=== PATIENT | male | born 1930 | race Caucasian/White ===

== ENCOUNTER → 2017-06-21 07:32 | Outpatient (CLI) | payer MEDICARE, OTHER | END | disposition home or self-care (01) | LOC: D.RAD 07:32 | DX: R13.10 Dysphagia, unspecified (principal) ==

== ENCOUNTER → 2017-07-14 10:48 | Outpatient (CLI) | payer MEDICARE, OTHER | END | disposition home or self-care (01) | LOC: D.RAD 10:48 | DX: R13.10 Dysphagia, unspecified (principal) ==

== ENCOUNTER → 2017-09-20 09:34 | Outpatient (CLI) | payer MEDICARE, OTHER | END | disposition home or self-care (01) | LOC: D.MRI 09:34 | DX: M25.561 Pain in right knee (principal) ==

== ENCOUNTER 2018-08-29 11:41 | Inpatient (IN) | payer MEDICARE, OTHER ==
[2018-08-29] MEDS ORDERED: CIPRO500 MG PO (11:46)
[2018-08-29] MEDS ORDERED: BISOPROLOL-HCTZ1 TA5 PO (11:47)
[2018-08-29] MEDS ORDERED: BENICAR20 MG PO (11:47)
[2018-08-29] MEDS ORDERED: NEURONTIN 300300 MG PO (11:48)
[2018-08-29] MEDS ORDERED: SYNTHROID75 MCG PO (11:48)
[2018-08-29] MEDS ORDERED: PROPAFENONE HC300 MG PO (11:48)
[2018-08-29] MEDS ORDERED: ZYLOPRIM300 MG PO (11:49)
[2018-08-29] MEDS ORDERED: ZANTAC300 MG PO (11:49)
[2018-08-29] MEDS ORDERED: BAYER CHEWABLE81 MG PO (11:49)
[2018-08-29] MEDS ORDERED: CRESTOR5 MG PO (11:50)
[2018-08-29] MEDS ORDERED: MIRAPEX0.25 MG PO (11:50)
[2018-08-29] MEDS ORDERED: CYMBALTA60 MG PO (11:50)
[2018-08-29] MEDS ORDERED: CARAFATE1 G PO (11:51)
[2018-08-29] MEDS ORDERED: COLCRYS0.6 MG PO (11:51)
[2018-08-29] MEDS ORDERED: HYDROCODON-ACE1 EA10 PO (11:51)
[2018-08-29] MEDS ORDERED: STOOL SOFTENER100 M1 PO (11:52)
[2018-08-29 12:29] LABS: BASOPHILS 0.3 % (0-2); EOSINOPHILS 3.6 % (0-7); HEMATOCRIT 35.8 % (42.0-54.0); HEMOGLOBIN 12.6 g/dL (13.5-17.5); LYMPHOCYTES 21.6 % (15-50); MCH 31.7 pg (26.0-34.0); MCHC 35.2 g/dL (31.0-37.0); MCV 90.2 fL (80.0-100.0); MEAN PLATELET VOLUME 9.2 fL (7.4-10.4); MONOCYTES 10.2 % (2-11); NEUTROPHILS 63.3 % (40-80); PLATELET COUNT 127 10x3/uL (130-400); RBC 3.97 10x6/uL (4.20-6.10); RDW 13.1 % (11.5-14.5); WBC 11.2 10x3/uL (4.8-10.8)
[2018-08-29 12:44] LABS: ALKALINE PHOSPHATASE 77 U/L (46-116); ALT (SGPT) 25 U/L (10-68); BILIRUBIN - TOTAL 0.99 mg/dL (0.2-1.3); CALC OSMOLALITY 267 mosm/kg (275-300); CALCIUM 8.2 mg/dL (8.5-10.1); CARBON DIOXIDE 21.6 mmol/L (21.0-32.0); CHLORIDE - SERUM 95 mmol/L (98-107); CREATININE - SERUM 4.1 mg/dL (0.6-1.3); GLUCOSE 88 mg/dL (74-106); POTASSIUM - SERUM 4.8 mmol/L (3.5-5.1); PROTEIN - SERUM 5.7 g/dL (6.4-8.2); SODIUM 128 mmol/L (136-145); UREA NITROGEN 47 mg/dL (7-18); eGFR NON AFRICAN AMERICAN 15 mL/min (90-120)
[2018-08-29 12:48] LABS: AMYLASE - SERUM 41 U/L (25-115); LIPASE 209 U/L (73-393); TROPONIN-I < 0.017 ng/mL (0.000-0.060)
[2018-08-29 14:26] LABS: APPEARANCE CLEAR (CLEAR); BILIRUBIN NEGATIVE (NEGATIVE); COLOR YELLOW (YELLOW); GLUCOSE NEGATIVE (NEGATIVE); KETONE NEGATIVE (NEGATIVE); NITRITE NEGATIVE (NEGATIVE); PROTEIN 1+ mg/dL (NEGATIVE); UROBILINOGEN NORMAL (NORMAL)
[2018-08-29 14:27] LABS: BACTERIA FEW /hpf (NONE SEEN); EPITHELIAL CELLS 0-5 /hpf (0-5); RED CELLS - URINE 0-5 /hpf (0-5)
[2018-08-29 18:20] VITALS: BP 109/58; BMI 31.9
--- NOTE | 2018-08-29 19:52 | NUR ---
REST IN BED. CALL LIGHT IN REACH.
[2018-08-29 20:00] VITALS: BP 124/45
[2018-08-30] VITALS (7 sets, daily range): BP systolic 103–147; BP diastolic 48–77; BMI 31.8
--- NOTE | 2018-08-30 03:21 | NUR ---
REST QUIETLY IN BED. CALL LIGHT IN REACH.
[2018-08-30 06:02] LABS: BASOPHILS 0.4 % (0-2); EOSINOPHILS 4.4 % (0-7); HEMATOCRIT 35.4 % (42.0-54.0); HEMOGLOBIN 12.9 g/dL (13.5-17.5); IMMATURE GRANULOCYTES 1.3 % (0-5); LYMPHOCYTES 18.1 % (15-50); MCH 32.3 pg (26.0-34.0); MCHC 36.4 g/dL (31.0-37.0); MCV 88.7 fL (80.0-100.0); MEAN PLATELET VOLUME 9.2 fL (7.4-10.4); MONOCYTES 10.1 % (2-11); NEUTROPHILS 65.7 % (40-80); PLATELET COUNT 150 10x3/uL (130-400); RBC 3.99 10x6/uL (4.20-6.10); RDW 12.9 % (11.5-14.5); WBC 9.3 10x3/uL (4.8-10.8)
[2018-08-30 06:27] LABS: ANION GAP 17.8 mmol/L (8-16); BILIRUBIN - TOTAL 0.97 mg/dL (0.2-1.3); CALCIUM 8.6 mg/dL (8.5-10.1); CARBON DIOXIDE 20.7 mmol/L (21.0-32.0); CREATININE - SERUM 3.3 mg/dL (0.6-1.3); POTASSIUM - SERUM 4.5 mmol/L (3.5-5.1); PROTEIN - SERUM 5.9 g/dL (6.4-8.2)
--- NOTE | 2018-08-30 14:19 | NUR ---
THE PATIENT WAS LYING IN BED WHEN STAFF ENTERED HIS ROOM. BED IS IN THE LOW POSITION WITH SIDERAILS X2 AND CALL LIGHT IS WITHIN REACH. THE PATIENT WAS EDUCATED ON AND DEMONSTRATED TH EUSE OF A CALL LIGHT. THE PATIENT APPEARS COMFORTABLE WITH NO QUESTIOSN OR CONCERNS AT THIS TIME.
--- NOTE | 2018-08-30 14:35 | MORECARE ---
CASE MANAGEMENT DISCHARGE SUMMARY PATIENT: SCOTT KANG UNIT: [id number] ADM DATE: 08/29/18 AGE: 87 : 30 SEX: M ROOM/BED: D.1212 AUTHOR: SHERRIE MASCORRO PHYSICIAN: REFERRING PHYSICIAN: DAMI MCNEILL MD DATE OF SERVICE: 08/30/18 Discharge Plan Patient Name: SCOTT KANG [facility] [facility] 1930 Planned Disposition: Anticipated Discharge Date: Discharge Date: Expected LOS: Initial Reviewer: [email or web address] Initial Review Date: 08/30/2018 Generated: 08/30/18 3:35 pm DCPIA - Discharge Planning Initial Assessment Updated by [email or web address]: Patty Lilly on 08/30/18 2:35 pm * Is the patient Alert and Oriented? Yes * PCP LADI * Preadmission Environment Home with Family * ADLs Independent * Equipment Cane CPAP Walker * List name and contact numbers for known caregivers / representatives who currently or will assist patient after discharge: JING, ALESHIA, * Additional services required to return to the preadmission environment? No * Can the patient safely return to the preadmission environment? Yes * Has this patient been hospitalized within the prior 30 days at any hospital? No Patient Name: SCOTT KANG Page [id number] at 1435 All edits/amendments must be made on the electronic document DICTATION DATE: 08/30/18 1435 AUTOMOTIVE GENERAL MANAGER: ROJAS 08/30/18 1435 RPT#: [id number] DC DATE: STATUS: ADM IN [facility] [address] [place] [address] END OF REPORT
--- NOTE | 2018-08-30 14:45 | MORECARE ---
CASE MANAGEMENT DISCHARGE SUMMARY PATIENT: SCOTT KANG UNIT: [id number] ADM DATE: 08/29/18 AGE: 87 : 30 SEX: M ROOM/BED: D.1212 AUTHOR: SHERRIE MASCORRO PHYSICIAN: REFERRING PHYSICIAN: DAMI MCNEILL MD DATE OF SERVICE: 08/30/18 Discharge Plan Patient Name: SCOTT KANG Facility: [facility]:[place] : 1930 Planned Disposition: Anticipated Discharge Date: Discharge Date: Expected LOS: Initial Reviewer: [email or web address] Initial Review Date: 08/30/2018 Generated: 08/30/18 3:45 pm Comments DCP- Discharge Planning Updated by [id number]: Patty Lilly on 08/30/18 1:[address] Patient Name: SCOTT KANG Admission Status: ER Accout number: [id number] Admission Date: 08-29-2018 : 1930 Admission Diagnosis: Attending: DAMI MCNEILL Current LOS: 1 Anticipated DC Date: Planned Disposition: Primary Insurance: MEDICARE A & B Discharge Planning Comments: CM MET WITH PATIENT'S JING ABOUT DC PLANNING/NEEDS. STATES HE MAY NEED HH WHEN DISCHARGED. STATES HAS BEEN THINKING ABOUT [facility]. I WILL GET BROSHURE FOR HER, I WILL ALSO GIVE INFORMATION ON THE HH SERVICES AVAILABLE. CM TO FOLLOW AND ASSIST NEEDED. Shop Supervisor: Patty Lilly DCPIA - Discharge Planning Initial Assessment Updated by [id number]: Pattysabrina Lilly on 08/30/18 2:35 pm * Is the patient Alert and Oriented? Yes * PCP LADI * Preadmission Environment Home with Family * ADLs Independent * Equipment Cane CPAP Walker * List name and contact numbers for known caregivers / representatives who currently or will assist patient after discharge: ALESHIA CH, * Additional services required to return to the preadmission environment? No * Can the patient safely return to the preadmission environment? Yes * Has this patient been hospitalized within the prior 30 days at any hospital? No Last DP export: 08/30/18 1:35 p Patient Name: SCOTT KANG Page [id number] at 1445 All edits/amendments must be made on the electronic document DICTATION DATE: 08/30/181443 BAKING POWDER MIXER: ROJAS 08/30/181443 RPT#: [id number] DC DATE: STATUS: ADM IN [facility] [address] [place] [address] END OF REPORT
--- NOTE | 2018-08-30 16:06 | NUR ---
PATIENT NOW REFUSUES TO WEAR BUSINESS ENTERPRISE OFFICER.
--- NOTE | 2018-08-30 18:35 | NUR ---
POST URINATION RESIDUAL BLADDER SCAN YIELDED 10 ML OF URINE.
--- NOTE | 2018-08-30 19:50 | NUR ---
UP TO BR. DIARRHEA NOTED. GAIT VERY UNSTEADY. ASSISTED BACK TO BED. ALERT AND ORIENTED X4 BUT FORGETFUL AT TIMES. VIVIEN ALARM ON FOR PT SAFETY. SOB NOTED UPON EXERTION. MUCKLESHOOT. USES URINAL. NS @ 75 MLHR INFUSING IN RT HAND IS LEAKING AROUND SITE. IV CATH REMOVED AT THIS TIME. DENIES PAIN. SR ELEVATED X2. CL IN REACH.
--- NOTE | 2018-08-30 22:00 | NUR ---
STAFF X2 HAS ATTEMPTED X5 TO RESTART IV WITHOUT SUCCESS.
[2018-08-31 00:15] VITALS: BP 152/70
--- NOTE | 2018-08-31 02:10 | NUR ---
PT HASNT SLEPT TONIGHT. RESTLESS. LYING IN BED. VIVIEN ALARM IN USE FOR PT SAFETY. SR ELEVATED X2. CL IN REACH.
--- NOTE | 2018-08-31 03:00 | NUR ---
IV RESTARTED AFTER 2 MORE ATTEMPTS WITH 20G TO RT FOREARM PERMargot IVORY RN.
[2018-08-31 04:28] VITALS: BP 148/80
--- NOTE | 2018-08-31 08:00 | NUR ---
THE PATIENT WAS AWAKE AND WATCHING TELEVISION WHEN STAFF ENTERED HIS ROOM. BE DIS IN THE LOW POSITION WITH SIDERAILS X2 AND CALL LIGHT WITHIN REACH. THE PATIENT WAS EDUCATED ON THE NEED TO CALL STAFF FOR ANY ASSISTANCE WITH ADLS AND DEMOSNTARTES UNDERSTANDING VIA TEACHABCK METHOD. THE PATIENT APPEARS COMFORTABLE WITH NO QUESTIONS OR COCNERNS AT THIS TIME.
[2018-08-31 08:02] VITALS: BP 163/76
[2018-08-31 08:40] LABS: BASOPHILS 0.3 % (0-2); EOSINOPHILS 4.2 % (0-7); HEMATOCRIT 33.1 % (42.0-54.0); IMMATURE GRANULOCYTES 1.3 % (0-5); LYMPHOCYTES 21.2 % (15-50); MCH 31.7 pg (26.0-34.0); MCHC 36.3 g/dL (31.0-37.0); MCV 87.6 fL (80.0-100.0); MONOCYTES 7.6 % (2-11); NEUTROPHILS 65.4 % (40-80); PLATELET COUNT 139 10x3/uL (130-400); RBC 3.78 10x6/uL (4.20-6.10); RDW 12.9 % (11.5-14.5)
[2018-08-31 08:43] LABS: WBC 6.2 10x3/uL (4.8-10.8)
[2018-08-31 09:23] LABS: ANION GAP 14.3 mmol/L (8-16); CALCIUM 8.4 mg/dL (8.5-10.1); POTASSIUM - SERUM 4.3 mmol/L (3.5-5.1)
[2018-08-31 13:26] VITALS: BP 161/90
[2018-08-31 16:00] VITALS: BP 136/69
[2018-08-31 20:00] VITALS: BP 162/73
--- NOTE | 2018-08-31 20:18 | NUR ---
PATIENT RESTING IN BED WITH NO S/S OF DISTRESS AND DENIES NEEDS AT THIS TIME. BED IN LOWEST POSITION AND CALL LIGHT WITHIN REACH. ENCOURAGED PATIENT TO CALL IF HE HAS NEEDS. WILL CONTINUE TO MONITOR.
[2018-09-01 00:30] VITALS: BP 136/60
[2018-09-01 00:54] LABS: CREATININE - URINE 61.7 mg/dL (30-125); PRO/CRE RATIO URINE 0.2 mg/g; PROTEIN - URINE 15.3 mg/dL (0.0-11.9)
[2018-09-01 02:57] LABS: BASOPHILS 0.5 % (0-2); EOSINOPHILS 4.5 % (0-7); HEMATOCRIT 33.1 % (42.0-54.0); HEMOGLOBIN 11.9 g/dL (13.5-17.5); IMMATURE GRANULOCYTES 1.2 % (0-5); LYMPHOCYTES 24.5 % (15-50); MCH 31.9 pg (26.0-34.0); MCV 88.7 fL (80.0-100.0); MEAN PLATELET VOLUME 10.2 fL (7.4-10.4); MONOCYTES 10.4 % (2-11); NEUTROPHILS 58.9 % (40-80); PLATELET COUNT 115 10x3/uL (130-400); RBC 3.73 10x6/uL (4.20-6.10); WBC 6.7 10x3/uL (4.8-10.8)
[2018-09-01 03:09] LABS: ANION GAP 12.9 mmol/L (8-16); CALCIUM 8.2 mg/dL (8.5-10.1); CARBON DIOXIDE 20.8 mmol/L (21.0-32.0); CREATININE - SERUM 1.5 mg/dL (0.6-1.3); POTASSIUM - SERUM 4.7 mmol/L (3.5-5.1)
[2018-09-01 04:00] VITALS: BP 131/64
[2018-09-01 07:25] VITALS: BP 121/67
[2018-09-01 11:05] VITALS: BP 139/71
[2018-09-01 14:59] VITALS: BP 154/80
--- NOTE | 2018-09-01 15:03 | NUR ---
PATIENT REQUESTING I CALL DR MESA FOR DC ORDERS SINCE DR CRUZ ADVISED THAT THE PATIENT WAS OK BY HIM TO GO HOME. CALLING NOW. WILL WAIT ON HIS CALL
--- NOTE | 2018-09-01 16:17 | MORECARE ---
CASE MANAGEMENT DISCHARGE SUMMARY PATIENT: SCOTT KANG UNIT: [id number] ADM DATE: 08/29/18 AGE: 87 : 30 SEX: M ROOM/BED: D.1212 AUTHOR: SHERRIE MASCORRO PHYSICIAN: REFERRING PHYSICIAN: DAMI MCNEILL MD DATE OF SERVICE: 09/01/18 Discharge Plan Patient Name: SCOTT KANG Facility: [facility]:[place] : 1930 Planned Disposition: Anticipated Discharge Date: Discharge Date: Expected LOS: Initial Reviewer: [email or web address] Initial Review Date: 08/30/2018 Generated: 09/01/18 5:17 pm Comments DCP- Discharge Planning Updated by [email or web address]: Loretta Dunlap on 09/01/18 3:[address] Patient Name: SCOTT KANG Admission Status: ER Accout number: [id number] Admission Date: 08-29-2018 : 1930 Admission Diagnosis:ALTERED MENTAL STATUS, UNSPECIFIED Attending: DAMI MCNEILL Current LOS: 3 Anticipated DC Date: Planned Disposition: Primary Insurance: MEDICARE A & B Discharge Planning Comments: Pt signed DO and IMM. DO signed for [facility]. Info given to HH for admit, Pt denies any other needs at this time Body Former: Loretta Dunlap DCP- Discharge Planning Updated by [id number]: Patty Lilly on 08/30/18 1:[address] Patient Name: SCOTT KANG Admission Status: ER Accout number: [id number] Admission Date: 08-29-2018 : 1930 Admission Diagnosis: Attending: DAMI MCNEILL Current LOS: 1 Anticipated DC Date: Planned Disposition: Primary Insurance: MEDICARE A & B Discharge Planning Comments: CM MET WITH PATIENT'S JING ABOUT DC PLANNING/NEEDS. STATES HE MAY NEED HH WHEN DISCHARGED. STATES HAS BEEN THINKING ABOUT [facility]. I WILL GET BROSHURE FOR HER, I WILL ALSO GIVE INFORMATION ON THE HH SERVICES AVAILABLE. CM TO FOLLOW AND ASSIST NEEDED. Body Former: Patty Lilly DCPIA - Discharge Planning Initial Assessment Updated by [email or web address]: Patty Lilly on 08/30/18 2:35 pm * Is the patient Alert and Oriented? Yes * PCP LADI * Preadmission Environment Home with Family * ADLs Independent * Equipment Cane CPAP Walker * List name and contact numbers for known caregivers / representatives who currently or will assist patient after discharge: ALESHIA CH, * Additional services required to return to the preadmission environment? No * Can the patient safely return to the preadmission environment? Yes * Has this patient been hospitalized within the prior 30 days at any hospital? No Coverage Notice Reviewer: TANK Dunlap Notice Issued Date-Time: 09/01/2018 16:00 Notice Type: IM Discharge Notice Notice Delivered To: Patient Relationship to Patient: Self Supervisor [employer] Name: Delivery Method: HAND - Hand Delivered Perla Days: Prior Verbal Notification: Recipient Understood Notice: Yes Recipient Signature: Yes Med Rec Note Co-signed by Attending: Coverage Notice Comment: Reviewer: TANK Dunlap Notice Issued Date-Time: 09/01/2018 16:00 Notice Type: Patient Choice Letter Notice Delivered To: Patient Relationship to Patient: Self Supervisor [employer] Name: Delivery Method: HAND - Hand Delivered Perla Days: Prior Verbal Notification: Recipient Understood Notice: Yes Recipient Signature: Yes Med Rec Note Co-signed by Attending: Coverage Notice Comment: Last DP export: 08/30/18 1:45 p Patient Name: SCOTT KANG Page 37850 at 1617 All edits/amendments must be made on the electronic document DICTATION DATE: 09/01/181616 HYDROCHLORIC ACID OPERATOR: ROJAS 09/01/181616 RPT#: [id number] DC DATE: STATUS: ADM IN [facility] [address] [place] [address] END OF REPORT
--- NOTE | 2018-09-01 16:41 | MORECARE ---
CASE MANAGEMENT DISCHARGE SUMMARY PATIENT: SCOTT KANG UNIT: [id number] ADM DATE: 08/29/18 AGE: 87 : 30 SEX: M ROOM/BED: D.1212 AUTHOR: SHERRIE MASCORRO PHYSICIAN: REFERRING PHYSICIAN: DAMI MCNEILL MD DATE OF SERVICE: 09/01/18 Discharge Plan Patient Name: SCOTT KANG Facility: [facility]:[place] : 1930 Planned Disposition: Anticipated Discharge Date: Discharge Date: Expected LOS: Initial Reviewer: [email or web address] Initial Review Date: 08/30/2018 Generated: 09/01/18 5:41 pm Comments DCP- Discharge Planning Updated by [email or web address]: Loretta Dunlap on 09/01/18 3:[address] Patient Name: SCOTT KANG Admission Status: ER Accout number: [id number] Admission Date: 08-29-2018 : 1930 Admission Diagnosis:ALTERED MENTAL STATUS, UNSPECIFIED Attending: DAMI MCNEILL Current LOS: 3 Anticipated DC Date: Planned Disposition: Primary Insurance: MEDICARE A & B Discharge Planning Comments: Pt signed DO and IMM. DO signed for [facility]. Info given to HH for admit, Pt denies any other needs at this time Pharmaceutical Operator: Loretta Dunlap DCP- Discharge Planning Updated by [id number]: Patty Lilly on 08/30/18 1:[address] Patient Name: SCOTT KANG Admission Status: ER Accout number: [id number] Admission Date: 08-29-2018 : 1930 Admission Diagnosis: Attending: DAMI MCNEILL Current LOS: 1 Anticipated DC Date: Planned Disposition: Primary Insurance: MEDICARE A & B Discharge Planning Comments: CM MET WITH PATIENT'S JING ABOUT DC PLANNING/NEEDS. STATES HE MAY NEED HH WHEN DISCHARGED. STATES HAS BEEN THINKING ABOUT [facility]. I WILL GET BROSHURE FOR HER, I WILL ALSO GIVE INFORMATION ON THE HH SERVICES AVAILABLE. CM TO FOLLOW AND ASSIST NEEDED. Pharmaceutical Operator: Patty Lilly DCPIA - Discharge Planning Initial Assessment Updated by [email or web address]: Patty Lilly on 08/30/18 2:35 pm * Is the patient Alert and Oriented? Yes * PCP LADI * Preadmission Environment Home with Family * ADLs Independent * Equipment Cane CPAP Walker * List name and contact numbers for known caregivers / representatives who currently or will assist patient after discharge: ALESHIA CH, * Additional services required to return to the preadmission environment? No * Can the patient safely return to the preadmission environment? Yes * Has this patient been hospitalized within the prior 30 days at any hospital? No Coverage Notice Reviewer: TANK Dunlap Notice Issued Date-Time: 09/01/2018 16:00 Notice Type: IM Discharge Notice Notice Delivered To: Patient Relationship to Patient: Self Clinical Informatics Strategist Name: Delivery Method: HAND - Hand Delivered Perla Days: Prior Verbal Notification: Recipient Understood Notice: Yes Recipient Signature: Yes Med Rec Note Co-signed by Attending: Coverage Notice Comment: Reviewer: TANK Dunlap Notice Issued Date-Time: 09/01/2018 16:00 Notice Type: Patient Choice Letter Notice Delivered To: Patient Relationship to Patient: Self Clinical Informatics Strategist Name: Delivery Method: HAND - Hand Delivered Perla Days: Prior Verbal Notification: Recipient Understood Notice: Yes Recipient Signature: Yes Med Rec Note Co-signed by Attending: Coverage Notice Comment: Last DP export: 09/01/18 3:17 p Patient Name: SCOTT KANG Page [id number] at 1641 All edits/amendments must be made on the electronic document DICTATION DATE: 09/01/181640 TELE GROUT SEWER LINE REPAIRER: ROJAS 09/01/181640 RPT#: [id number] DC DATE: STATUS: ADM IN [facility] [address] [place] [address] END OF REPORT
--- NOTE | 2018-09-01 17:12 | NUR ---
IV THERAPY DC'ED FROM RIGHT FOREARM WITH TIP INTACT. DISCHARGE INSTRUCTIONS GIVEN AND VOICED UNDERSTANDING.
== END 2018-09-01 17:13 | disposition home health service (06) | DRG 682 ==
LOC: D.ER 11:41 → D.M3 14:09 → D.MS 14:09 → D.M3 16:32
PROVIDERS: Family Medicine; Internal Medicine Nephrology; ADMIT Family Medicine; ATTEND Family Medicine
DX: N17.9 Acute kidney failure, unspecified (principal); G92 Toxic encephalopathy; N39.0 Urinary tract infection, site not specified; E87.1 Hypo-osmolality and hyponatremia; R44.0 Auditory hallucinations; R41.82 Altered mental status, unspecified; T40.2X5A Adverse effect of other opioids, initial encounter; N18.3 Chronic kidney disease, stage 3 (moderate); I25.10 Atherosclerotic heart disease of native coronary artery without angina pectoris; K21.9 Gastro-esophageal reflux disease without esophagitis; R13.10 Dysphagia, unspecified

== ENCOUNTER 2018-12-11 15:53 | Emergency (ER) | payer MEDICARE, OTHER ==
[~2018-12-11] VITALS: Ht 182.9 cm; Wt 120.0 kg
[~2018-12-11 15:53] MED LIST: BAYER CHEWABLE81 MG PO; BENICAR20 MG PO; BISOPROLOL-HCTZ1 TA5 PO; CARAFATE1 G PO; CIPRO500 MG PO; COLCRYS0.6 MG PO; CRESTOR5 MG PO; CYMBALTA60 MG PO; HYDROCODON-ACE1 EA10 PO; MIRAPEX0.25 MG PO; NEURONTIN 300300 MG PO; PROPAFENONE HC300 MG PO; STOOL SOFTENER100 M1 PO; SYNTHROID75 MCG PO; ZANTAC300 MG PO; ZYLOPRIM300 MG PO
[2018-12-11 15:58] VITALS: Ht 182.9 cm; Wt 120.0 kg
[2018-12-11] MEDS ORDERED: ZANAFLEX4 MG PO (16:09)
[2018-12-11] MEDS ORDERED: MORPHINE PUMP PO (16:11)
[2018-12-11 16:29] LABS: BASOPHILS 0.4 % (0-2); EOSINOPHILS 4.4 % (0-7); HEMATOCRIT 40.9 % (42.0-54.0); HEMOGLOBIN 13.7 g/dL (13.5-17.5); IMMATURE GRANULOCYTES 0.6 % (0-5); LYMPHOCYTES 29.1 % (15-50); MCH 31.8 pg (26.0-34.0); MCHC 33.5 g/dL (31.0-37.0); MCV 94.9 fL (80.0-100.0); MEAN PLATELET VOLUME 9.6 fL (7.4-10.4); MONOCYTES 8.6 % (2-11); NEUTROPHILS 56.9 % (40-80); PLATELET COUNT 136 10x3/uL (130-400); RBC 4.31 10x6/uL (4.20-6.10); WBC 6.8 10x3/uL (4.8-10.8)
[2018-12-11 16:39] LABS: APPEARANCE CLEAR (CLEAR); BILIRUBIN NEGATIVE (NEGATIVE); COLOR YELLOW (YELLOW); GLUCOSE NEGATIVE (NEGATIVE); KETONE NEGATIVE (NEGATIVE); NITRITE NEGATIVE (NEGATIVE); PROTEIN NEGATIVE (NEGATIVE); UROBILINOGEN NORMAL (NORMAL)
[2018-12-11 16:41] LABS: APTT 31.6 SECONDS (22.8-39.4); INR 1.08 (0.85-1.17); PROTIME 13.5 SECONDS (11.6-15.0)
[2018-12-11 16:48] LABS: UDS - AMPHET NEGATIVE QUAL (NEGATIVE); UDS - BARB NEGATIVE QUAL (NEGATIVE); UDS - BENZO NEGATIVE QUAL (NEGATIVE); UDS - COCAINE NEGATIVE QUAL (NEGATIVE); UDS - OPIATE POSITIVE QUAL (NEGATIVE); UDS - PCP NEGATIVE QUAL (NEGATIVE); UDS - THC NEGATIVE QUAL (NEGATIVE)
[2018-12-11 16:50] LABS: ALBUMIN 3.4 g/dL (3.4-5.0); ALKALINE PHOSPHATASE 111 U/L (46-116); ALT (SGPT) 25 U/L (10-68); BILIRUBIN - TOTAL 0.58 mg/dL (0.2-1.3); CALC OSMOLALITY 289 mosm/kg (275-300); CALCIUM 8.5 mg/dL (8.5-10.1); CARBON DIOXIDE 25.8 mmol/L (21.0-32.0); CHLORIDE - SERUM 105 mmol/L (98-107); GLUCOSE 135 mg/dL (74-106); POTASSIUM - SERUM 5.2 mmol/L (3.5-5.1); PROTEIN - SERUM 6.6 g/dL (6.4-8.2); SODIUM 140 mmol/L (136-145); UREA NITROGEN 38 mg/dL (7-18); eGFR NON AFRICAN AMERICAN 34 mL/min (90-120)
[2018-12-11 17:03] LABS: CKMB 2.4 U/L (0.0-3.6); CREATINE KINASE 142 UL (21-232); THYROID STIMULATING HORMONE 3.07 uIU/mL (0.36-3.74); TROPONIN-I < 0.017 ng/mL (0.000-0.060)
[2018-12-11 19:50] VITALS: BP 129/51
== END 2018-12-11 19:51 | disposition home or self-care (01) ==
LOC: D.ER 15:53
PROVIDERS: Family Medicine
DX: R53.1 Weakness (principal); R94.4 Abnormal results of kidney function studies; I25.10 Atherosclerotic heart disease of native coronary artery without angina pectoris

== ENCOUNTER → 2020-06-11 12:55 | Outpatient (CLI) | payer MEDICARE, OTHER ==
[2020-04-09 13:16] VITALS: BMI 32.6
[~2020-06-11 12:55] MED LIST changes: +MORPHINE PUMP PO; +PEPCID40 MG PO; +ZANAFLEX4 MG PO
== END | disposition home or self-care (01) ==
LOC: D.CT 12:55
PROVIDERS: ATTEND Family Medicine
DX: G31.09 Other frontotemporal neurocognitive disorder (principal); E07.0 Hypersecretion of calcitonin

== ENCOUNTER 2020-07-04 03:48 | Emergency (ER) | payer MEDICARE, OTHER ==
[~2020-07-04] VITALS: Ht 182.9 cm; Wt 109.1 kg
[2020-07-04 03:51] VITALS: Ht 182.9 cm; Wt 109.1 kg
[2020-07-04 04:21] LABS: BILIRUBIN NEGATIVE (NEGATIVE); KETONE NEGATIVE (NEGATIVE); NITRITE NEGATIVE (NEGATIVE); UROBILINOGEN NORMAL mg/dL (< 2)
[2020-07-04 04:44] LABS: BASOPHILS 0.6 % (0-2); EOSINOPHILS 2.1 % (0-7); HEMOGLOBIN 13.8 g/dL (13.5-17.5); IMMATURE GRANULOCYTES 0.1 % (0-5); LYMPHOCYTE ABS# 1.71 10x3/uL (1.32-3.57); LYMPHOCYTES 25.1 % (15-50); MCH 31.7 pg (26.0-34.0); MCHC 34.5 g/dL (31.0-37.0); MCV 91.7 fL (80.0-100.0); MEAN PLATELET VOLUME 9.5 fL (7.4-10.4); MONOCYTES 9.8 % (2-11); NEUTROPHIL ABS# 4.24 10x3/uL (1.78-5.38); NEUTROPHILS 62.3 % (40-80); PLATELET COUNT 129 10x3/uL (130-400); RBC 4.36 10x6/uL (4.20-6.10); RDW 13.1 % (11.5-14.5); WBC 6.8 10x3/uL (4.8-10.8)
[2020-07-04 04:53] LABS: INR 1.18 (0.85-1.17); PROTIME 13.9 SECONDS (11.6-15.0)
[2020-07-04 04:54] LABS: APTT 30.5 SECONDS (22.8-39.4)
[2020-07-04 04:55] LABS: CALC OSMOLALITY 283 mosm/kg (275-300); CALCIUM 9.1 mg/dL (8.5-10.1); CARBON DIOXIDE 30.8 mmol/L (21.0-32.0); CHLORIDE - SERUM 103 mmol/L (98-107); CREATININE - SERUM 1.6 mg/dL (0.6-1.3); GLUCOSE 138 mg/dL (74-106); POTASSIUM - SERUM 3.7 mmol/L (3.5-5.1); SODIUM 140 mmol/L (136-145); UREA NITROGEN 21 mg/dL (7-18); eGFR NON AFRICAN AMERICAN 43 mL/min (90-120)
[2020-07-04 05:08] LABS: ALBUMIN 3.4 g/dL (3.4-5.0); ALKALINE PHOSPHATASE 117 U/L (30-120); ALT (SGPT) 22 U/L (10-68); BILIRUBIN - TOTAL 0.95 mg/dL (0.2-1.3); CKMB 2.8 U/L (0.0-3.6); CREATINE KINASE 197 UL (21-232); PROTEIN - SERUM 6.4 g/dL (6.4-8.2); THYROID STIMULATING HORMONE 3.15 uIU/mL (0.36-3.74)
[2020-07-04 05:09] LABS: TROPONIN-I < 0.017 ng/mL (0.000-0.060)
[2020-07-04 05:15] VITALS: BP 153/73
[2020-07-04] MEDS ORDERED: LASIX40 MG PO (05:21)
[2020-07-04] MEDS ORDERED: LISINOPRIL10 MG PO (05:21)
[2020-07-04] MEDS ORDERED: K-DUR20 MEQ PO (05:21)
== END 2020-07-04 09:38 ==
LOC: D.ER 03:48
PROVIDERS: Emergency Medicine
DX: I50.9 Heart failure, unspecified (principal); I10 Essential (primary) hypertension; E78.5 Hyperlipidemia, unspecified; I49.9 Cardiac arrhythmia, unspecified; R42 Dizziness and giddiness

== ENCOUNTER 2020-07-12 21:39 | Emergency (ER) | payer MEDICARE, OTHER ==
[~2020-07-12] VITALS: Ht 182.9 cm; Wt 90.9 kg
[~2020-07-12 21:39] MED LIST changes: +K-DUR20 MEQ PO; +LASIX40 MG PO; +LISINOPRIL10 MG PO; +PEPCID AC20 MG PO; -PEPCID40 MG PO
[2020-07-12 22:06] VITALS: Ht 182.9 cm; Wt 90.9 kg
[2020-07-13] MEDS ORDERED: REXULTI1 MG PO (01:00)
[2020-07-13 04:14] VITALS: BP 127/84
== END 2020-07-13 09:33 ==
LOC: D.ER 21:39
DX: S30.0XXA Contusion of lower back and pelvis, initial encounter (principal); W19.XXXA Unspecified fall, initial encounter; I10 Essential (primary) hypertension; E78.5 Hyperlipidemia, unspecified; I49.9 Cardiac arrhythmia, unspecified; K21.9 Gastro-esophageal reflux disease without esophagitis

== ENCOUNTER 2020-08-07 11:16 | Emergency (ER) | payer MEDICARE, OTHER ==
[~2020-08-07] VITALS: Ht 182.9 cm; Wt 103.6 kg
[~2020-08-07 11:16] MED LIST changes: +REXULTI1 MG PO
[2020-08-07 11:18] VITALS: Ht 182.9 cm; Wt 103.6 kg
[2020-08-07 11:53] LABS: HEMATOCRIT 42.5 % (42.0-54.0); HEMOGLOBIN 14.7 g/dL (13.5-17.5); MCH 31.7 pg (26.0-34.0); MCHC 34.6 g/dL (31.0-37.0); MCV 91.5 fL (80.0-100.0); RBC 4.64 10x6/uL (4.20-6.10); WBC 16.7 10x3/uL (4.8-10.8)
[2020-08-07 11:54] LABS: PLATELET COUNT 185 10x3/uL (130-400)
[2020-08-07 12:06] LABS: BILIRUBIN NEGATIVE (NEGATIVE); KETONE NEGATIVE (NEGATIVE); NITRITE NEGATIVE (NEGATIVE)
[2020-08-07 12:07] LABS: BACTERIA MANY HPF (NONE SEEN); SQUAMOUS EPITHELIAL 0-5 HPF (0-4)
[2020-08-07 12:33] LABS: ALBUMIN 3.1 g/dL (3.4-5.0); ANION GAP 14.2 mmol/L (8-16); BILIRUBIN - TOTAL 1.11 mg/dL (0.2-1.3); CALCIUM 8.7 mg/dL (8.5-10.1); CARBON DIOXIDE 24.5 mmol/L (21.0-32.0); POTASSIUM - SERUM 4.7 mmol/L (3.5-5.1); PROTEIN - SERUM 6.5 g/dL (6.4-8.2)
[2020-08-07] MEDS ORDERED: LEVOFLOXACIN500 MG PO (13:07)
[2020-08-07 13:35] LABS: LYMPHOCYTES 17 % (15-50); MONOCYTES 2 % (2-11); NEUTROPHILS 81 % (40-80); PLATELET ESTIMATE NORMAL
[2020-08-07 14:57] VITALS: BP 149/82
== END 2020-08-07 14:40 | disposition home or self-care (01) ==
LOC: D.ER 11:16
PROVIDERS: Emergency Medicine
DX: N30.91 Cystitis, unspecified with hematuria (principal); G62.9 Polyneuropathy, unspecified; E78.5 Hyperlipidemia, unspecified; I10 Essential (primary) hypertension; K21.9 Gastro-esophageal reflux disease without esophagitis

== ENCOUNTER 2020-08-13 11:09 | Emergency (ER) | payer MEDICARE, OTHER ==
[~2020-08-13] VITALS: Ht 182.9 cm; Wt 102.3 kg
[~2020-08-13 11:09] MED LIST changes: +LEVOFLOXACIN500 MG PO
[2020-08-13 11:12] VITALS: Ht 182.9 cm; Wt 102.3 kg
[2020-08-13 13:23] LABS: KETONE NEGATIVE (NEGATIVE); NITRITE NEGATIVE (NEGATIVE); UROBILINOGEN NORMAL mg/dL (< 2)
[2020-08-13 13:24] LABS: BILIRUBIN NEGATIVE (NEGATIVE)
[2020-08-13 13:29] VITALS: BP 114/67
[2020-08-13 13:49] LABS: BASOPHILS 1.5 % (0-2); EOSINOPHILS 2.3 % (0-7); HEMATOCRIT 45.4 % (42.0-54.0); HEMOGLOBIN 15.3 g/dL (13.5-17.5); LYMPHOCYTES 22.5 % (15-50); MCH 31.5 pg (26.0-34.0); MCHC 33.7 g/dL (31.0-37.0); MCV 93.5 fL (80.0-100.0); MEAN PLATELET VOLUME 7.5 fL (7.4-10.4); MONOCYTES 8.8 % (2-11); NEUTROPHILS 64.9 % (40-80); PLATELET COUNT 195 10x3/uL (130-400); RBC 4.86 10x6/uL (4.20-6.10); RDW 14.7 % (11.5-14.5); WBC 8.1 10x3/uL (4.8-10.8)
[2020-08-13 13:54] LABS: ANION GAP 10.7 mmol/L (8-16); CALCIUM 9.6 mg/dL (8.5-10.1); CARBON DIOXIDE 30.6 mmol/L (21.0-32.0); CREATININE - SERUM 1.9 mg/dL (0.6-1.3); POTASSIUM - SERUM 4.3 mmol/L (3.5-5.1)
[2020-08-13 14:00] LABS: ALBUMIN 3.5 g/dL (3.4-5.0); BILIRUBIN - TOTAL 0.74 mg/dL (0.2-1.3)
[2020-08-13] MEDS ORDERED: CEPHALEXIN250 M1 PO (14:51)
== END 2020-08-13 15:43 | disposition home or self-care (01) ==
LOC: D.ER 11:09
PROVIDERS: Emergency Medicine
DX: S16.1XXA Strain of muscle, fascia and tendon at neck level, initial encounter (principal); S09.90XA Unspecified injury of head, initial encounter; S00.01XA Abrasion of scalp, initial encounter; W19.XXXA Unspecified fall, initial encounter; Y93.9 Activity, unspecified; Y92.9 Unspecified place or not applicable; G62.9 Polyneuropathy, unspecified; I10 Essential (primary) hypertension; E78.5 Hyperlipidemia, unspecified; K21.9 Gastro-esophageal reflux disease without esophagitis